=== PATIENT | male | born 1975 | race African-American/Black ===

== ENCOUNTER → 2020-04-14 | Outpatient (CLI) | payer MEDICAID, SELFPAY ==
--- NOTE | 2020-04-14 10:09 | RAD_ITS ---
CLINICAL HISTORY: Male, 45 years old. Chronic right shoulder pain following injury. PROCEDURE: ARTHROGRAM - RIGHT SHOULDER CONSENT: The procedure as well as the benefits and possible complications including infection and bleeding were explained to the patient. Informed consent was obtained. FLUOROSCOPY TIME (if supplied): (60 seconds) minutes/seconds Injection Information: 10 cc of dilute Dotarem Number of images obtained: 4 TECHNIQUE: (All elements of maximal sterile barrier technique followed, including US elements as applicable) The patient was in the supine position. The overlying skin was prepped and draped in the usual style fashion. After local anesthetic application and under direct fluoroscopic guidance, a 22-gauge spinal needle was placed into the shoulder joint. 2 cc of ISOVUE 300 was injected for confirmation. Following this, 10 cc of dilute Dotarem was injected. The patient tolerated the procedure well. RAD/Arthrogram Shoulder IMPRESSION: Successful right shoulder arthrogram with injection of MRI contrast. The patient tolerated the procedure well. Electronically Signed: Yeyo Christine, at 12:24 EDT , Service support ,
--- NOTE | 2020-04-14 10:13 | MRI_ITS ---
STUDY: MRI RIGHT SHOULDER REASON FOR EXAM: Male, 45 years old. synovitis, tenosynovitis right shoulder, pain down right arm, numbness and tingling right hand TECHNIQUE: Standardized fat and water weighted pulse sequences were obtained in all 3 orthogonal planes. COMPARISON: None. FINDINGS: Mild supraspinatus and infraspinatus tendinosis and peritendinitis is but no macro tear or muscular atrophy. There is subscapularis tendinosis with tendon thickening, but without a demonstrated tendon tear. Normal teres minor tendon. Normal supraspinatus muscle. Normal infraspinatus muscle. Normal subscapularis muscle. Normal teres minor muscle. Normal glenohumeral articulation. There is a cortical erosion at the insertion of the infraspinatus tendon. Normal biceps labral complex. Normal intracapsular long biceps tendon. Normal labrum. Normal capsulo- ligamentous complex. Normal rotator interval. Normal acromioclavicular articulation. There is a Type II morphology (curved), with a anterior downsloping orientation. There is no subacromial-subdeltoid bursal fluid. Normal visualized coracohumeral and coracoacromial ligaments. Normal quadrilateral space. Normal axillary space. Normal deltoid muscle. Normal trapezius muscle. MRI/Upper Ext Jt Only W/Contrast IMPRESSION: Mild supraspinatus and infraspinatus tendinosis and peritendinitis is but no macro tear or muscular atrophy. Electronically Signed: González Aguayo MD at 15:42 EDT Tel , Service support ,
== END | disposition home or self-care (01) ==
LOC: RAD 10:07
PROVIDERS: Referring Provider Specialist; Visit Provider Specialist
DX: M65.811 Other synovitis and tenosynovitis, right shoulder (principal); S43.491A Other sprain of right shoulder joint, initial encounter
CPT/HCPCS: 23350; 73040; 73222; A9575; Q9967

== ENCOUNTER 2020-05-11 11:58 | Day surgery (SDC) | payer MEDICAID, SELFPAY ==
--- NOTE | 2020-05-04 09:12 | EKG12_ITS ---
Test Reason : PRE OP Blood Pressure : / mmHG Vent. Rate : 071 BPM Atrial Rate : 071 BPM P-R Int : 134 ms QRS Dur : 088 ms QT Int : 360 ms P-R-T Axes : 065 065 049 degrees QTc Int : 391 ms Normal sinus rhythm J Point Elevation Abnormal ECG Confirmed by NEFTALI GIRARD, DUTCH ([id number]), book editor PEPPER MAN ([id number]) on 05/05/2020 10:59:55 AM Referred By: Benji Kohler Confirmed By:DUTCH LINDSAY MD
[2020-05-08 13:54] LABS: Probe Check PASS; Specimen Processing Control PASS
[2020-05-11] VITALS (7 sets, daily range): BP systolic 149–165; BP diastolic 89–118; PULSE 64–80; RESP 16–18; TEMP 36.1–36.8; O2SAT 94–100; BMI 22.8
[2020-05-11] MEDS: Lactated Ringers 1,000 ML 100 ML IV ×2 (12:35→14:46)
[2020-05-11] MEDS: Cefazolin 2 GM in 0.9% Normal Saline 100 ML IV (13:55)
[2020-05-11] MEDS: Bupiv/Epi 0.5% Mpf 30 ML Vial (14:25)
--- NOTE | 2020-05-11 15:14 | OP.PCM_ITS ---
Report of Operation Date of Procedure: 05/11/20 Pre-Operative Diagnosis: SAIS, AC arthrosis, RCT right Post-Operative Diagnosis: same Surgery/Procedure Performed:: ASD, Consuelo procedure, RCR right ekg/ecg technician: Bill Huang Type of Anesthesia:: General/Regional Anesthesiologist: Ministerio Manning - Mandy VTE Documentation VTE Present on Admission: No VTE Mechan Device Prophylaxis: SCD's, Thigh High KOLTON Hose VTE Pharm Prophylaxis ordered?: No Reason prophylaxis not ordered:: Treatment Not Indicated
[2020-05-11] MEDS: Epinephrine (1 mg/ml) 1 MG/ML VIAL (15:15)
== END 2020-05-11 17:51 | disposition home or self-care (01) ==
LOC: SDC 12:00 → AC 12:00
PROVIDERS: Specialist; Referring Provider Orthopaedic Surgery; Visit Provider Orthopaedic Surgery
PROC: (CPT 29827; principal; 2020-05-11 14:00)
DX: S43.421A Sprain of right rotator cuff capsule, initial encounter (principal); F17.210 Nicotine dependence, cigarettes, uncomplicated; F12.90 Cannabis use, unspecified, uncomplicated; Z20.828 Contact with and (suspected) exposure to other viral communicable diseases; X58.XXXA Exposure to other specified factors, initial encounter; Y93.67 Activity, basketball; Y92.007 Garden or yard of unspecified non-institutional (private) residence as the place of occurrence of the external cause; Y99.8 Other external cause status
CPT/HCPCS: 01630; 29824; 29827; 87426; 87635; 93005; C9803; J7120; J2405; U0002

== ENCOUNTER 2021-09-09 13:10 | Outpatient (CLI) | payer MEDICAID, SELFPAY ==
--- NOTE | 2021-07-28 10:21 | EKG12_ITS ---
Test Reason : PRE OP Blood Pressure : / mmHG Vent. Rate : 086 BPM Atrial Rate : 086 BPM P-R Int : 136 ms QRS Dur : 084 ms QT Int : 346 ms P-R-T Axes : 082 085 -74 degrees QTc Int : 414 ms Normal sinus rhythm Biatrial enlargement ST & T wave abnormality, consider inferior ischemia ST & T wave abnormality, consider anterolateral ischemia Abnormal ECG Confirmed by NEFTALI GIRARD, DUTCH ([id number]), continuity editor PEPPER MAN ([id number]) on 07/29/2021 7:09:57 AM Referred By: Benji Kohler Confirmed By:DUTCH LINDSAY MD
[2021-07-28 10:55] LABS: Hematocrit 46.7 % (40-54); Hemoglobin 14.9 g/dL (13.0-16.5); Mean Corp Hgb Conc 31.9 g/dL (32-36); Mean Corpuscular Hgb 28.4 pg (27.0-32.0); Mean Platelet Vol. 9.3 fl (6.2-12.0); Platelet Count 265 K/mm3 (150-450); RBC Distribution Width CV 13.5 % (11.6-14.6); RBC Distribution Width SD 44.2 fl (35.1-43.9); Red Blood Count 5.25 M/mm3 (4.6-6.2)
[2021-07-28 11:21] LABS: Anion Gap 5 (5-15); BUN 8 mg/dL (7-18); BUN/Creat Ratio 6.4 RATIO (10-20); Calcium,Total 9.2 mg/dL (8.5-10.1); Chloride 105 mmol/L (98-107); Creatinine, Serum 1.25 mg/dL (0.70-1.30); EST Glomerular Filtration Rate 66 mL/min (>60); Est Glom Filt Rate - Afr Amer 79 mL/min (>60); Glucose 80 mg/dL (74-106); Potassium 3.7 mmol/L (3.5-5.1); Sodium Level 142 mmol/L (136-145)
== END 2021-09-09 23:59 | disposition home or self-care (01) ==
LOC: SDC 13:11
PROVIDERS: PCP Nurse Practitioner Family; Referring Provider Orthopaedic Surgery; Visit Provider Orthopaedic Surgery
DX: S46.011A Strain of muscle(s) and tendon(s) of the rotator cuff of right shoulder, initial encounter (principal); X58.XXXA Exposure to other specified factors, initial encounter; M75.01 Adhesive capsulitis of right shoulder; M75.41 Impingement syndrome of right shoulder; F17.210 Nicotine dependence, cigarettes, uncomplicated; Z20.822 Contact with and (suspected) exposure to COVID-19; Z53.9 Procedure and treatment not carried out, unspecified reason
CPT/HCPCS: 36415; 80048; 85027; 87426; 93005; C9803

== ENCOUNTER 2021-10-04 05:43 | Day surgery (SDC) | payer MEDICAID, SELFPAY ==
[2021-10-04] VITALS (7 sets, daily range): BP systolic 143–180; BP diastolic 88–157; PULSE 72–93; RESP 14–16; TEMP 36.3–37.1; O2SAT 98–100; BMI 22.4
[2021-10-04] MEDS: Lactated Ringers 1,000 ML 15 ML IV ×2 (06:42→07:30)
[2021-10-04] MEDS: Cefazolin 2 GM in 0.9% Normal Saline 100 ML IV (07:40)
[2021-10-04] MEDS: Lidocaine 1% /Epi 1:100 (50ml) 50 ML VIAL (08:01)
[2021-10-04] MEDS: Epinephrine (1 mg/ml) 1 MG/ML VIAL ×2 (08:05→08:40)
--- NOTE | 2021-10-04 09:02 | PCM.OPRPT ---
Report of Operation Date of Procedure: 10/04/21 Pre-Operative Diagnosis: Recurrent right rotator cuff tear Post-Operative Diagnosis: same Surgery/Procedure Performed:: Revision right rotator cuff repair Surgeon: Benji Kohler chucking lathe operator: Bill Huang Type of Anesthesia: General/Regional Anesthesiologist: Ministerio Manning Admnoreen VTE Documentation VTE Present on Admission: No VTE Mechan Device Prophylaxis: SCD's VTE Pharm Prophylaxis ordered?: No Reason prophylaxis not ordered:: Treatment Not Indicated
== END 2021-10-04 23:59 | disposition home or self-care (01) ==
LOC: SDC 05:43 → AC 05:44
PROVIDERS: PCP Nurse Practitioner Family; Referring Provider Orthopaedic Surgery; Visit Provider Orthopaedic Surgery
PROC: (CPT 29827; principal; 2021-10-04 07:10)
DX: M75.101 Unspecified rotator cuff tear or rupture of right shoulder, not specified as traumatic (principal); M19.90 Unspecified osteoarthritis, unspecified site; F17.210 Nicotine dependence, cigarettes, uncomplicated; M75.41 Impingement syndrome of right shoulder; M75.01 Adhesive capsulitis of right shoulder
CPT/HCPCS: 29827; 01630; 87426; C9803; J7120; J2405